=== PATIENT | female | born 1985 | race Caucasian/White ===

== ENCOUNTER 2017-04-02 23:56 | Inpatient (IN) | payer OTHER ==
[~2017-04-02] VITALS: Ht 165.1 cm; Wt 100.0 kg
[2017-04-03] VITALS (9 sets, daily range): BP systolic 105–124; BP diastolic 56–64; PULSE 72–105; RESP 16–22; TEMP 98; Ht 165.1 cm; Wt 100.0 kg
--- NOTE | 2017-04-03 00:11 | ERA ---
ER Documentation Chief Complaint Date/Time DATE: 04/03/17 TIME: 00:10 Chief Complaint SOB,Tx from [facility] HPI 31-year-old female transferred from [place] for asthma exacerbation. Given albuterol and steroids. Minimal improvement. Patient to be admitted to telemetry ROS All systems reviewed and are negative except as per history of present illness. Allergies Allergies: Coded Allergies: No Known Allergy (Unverified , 04/03/17) Physical Exam Vitals Vital Signs Date Time Temp Pulse Resp B/P Pulse Ox O2 Delivery O2 Flow Rate FiO2 04/02/17 23:58 98.6 121 18 118/60 94 Physical Exam Const: [] Head: Atraumatic Eyes: Normal Conjunctiva ENT: Normal External Ears, Nose and Mouth. Neck: Full range of motion..~ No meningismus. Resp: Scattered wheezes bilaterally Cardio: Regular rate and rhythm, no murmurs Abd: Soft, non tender, non distended. Normal bowel sounds Skin: No petechiae or rashes Back: No midline or flank tenderness Ext: No cyanosis, or edema Neur: Awake and alert Psych: Normal Mood and Affect Procedures/MDM Patient's respiratory symptoms have not responded to normal outpatient therapy and will require inpatient workup, monitoring, and treatment. Accepting Care Team: Current data and ongoing care discussed. Time: 12 AM Primary Provider: Kendrick Consulting: None Outstanding Data: none Departure Diagnosis: Primary Impression: Asthma Qualified Code: J45.901 - Asthma with acute exacerbation, unspecified asthma severity Additional Impression: Shortness of breath Condition: Serious PAULETTE CORREA Apr 03, 2017 00:11
[2017-04-03] MEDS ORDERED: NACL 0.9% 3 ML SYG IV SCH (01:00)
[2017-04-03] MEDS ORDERED: ACETAMINOPHEN 325 MG TAB PO PRN (01:00)
[2017-04-03] MEDS ORDERED: ALBUTEROL/IPRATROPIUM (NEB) 3 ML AMP HHN PRN (01:00)
[2017-04-03] MEDS ORDERED: morphine 2 MG INJ IV PRN (01:00)
[2017-04-03] MEDS ORDERED: DOCUSATE SODIUM 100 MG CAP PO PRN (01:00)
[2017-04-03] MEDS ORDERED: ONDANSETRON 4 MG INJ IV PRN (01:00)
[2017-04-03 06:04] LABS: ADD SCAN DIFF NO
[2017-04-03 06:08] LABS: BASOPHILS % 0.1 % (0.0-2.0); HEMATOCRIT 34.1 % (37.0-47.0); HEMOGLOBIN 11.3 g/dl (12.0-16.0); LYMPHOCYTES % 8.9 % (15.0-51.0); MEAN CORPUSCULAR HEMOGLOBIN 30.6 pg (29.0-33.0); MEAN CORPUSCULAR HGB CONC 33.1 g/dl (32.0-37.0); MEAN CORPUSCULAR VOLUME 92.4 fl (82.0-101.0); MEAN PLATELET VOLUME 9.5 fl (7.4-10.4); MONOCYTE # 0.5 10^3/ul (0.3-0.9); MONOCYTES % 4.6 % (0.0-11.0); NEUTROPHIL # 9.8 10^3/ul (1.6-7.5); NEUTROPHILS % 85.9 % (39.0-77.0); PLATELET COUNT 361 10^3/UL (140-415); RED BLOOD COUNT 3.69 10^6/ul (4.20-5.40); WHITE BLOOD COUNT 11.4 10^3/ul (4.8-10.8)
[2017-04-03 06:30] LABS: CALCIUM 8.8 mg/dl (8.4-10.2); CREATININE 0.51 mg/dl (0.44-1.00); POTASSIUM 4.6 mmol/L (3.5-5.1)
[2017-04-03] MEDS: METHYLPREDNISOLONE 125 MG INJ IV SCH ×4 (08:07→23:02)
--- NOTE | 2017-04-03 08:45 | HP ---
DATE OF ADMISSION: 04/03/2017 CHIEF COMPLAINT: Shortness of breath. HISTORY OF PRESENT ILLNESS: The patient is a 31-year-old female with a history of asthma as a child . She has no other significant medical history. She has no recent episodes of asthma. The patient states that she was in the ____, was very warm, and began to have shortness of breath and wheezing. She presented to an outside hospital where she was diagnosed with asthma and was transferred here for insurance purposes. The patient does not have any albuterol at home, and she does not say that her asthma is significant. The patient currently states she feels better. She has no other complai nts. PAST MEDICAL HISTORY: Asthma as a child, otherwise negative. The patient does have obesity. PAST SURGICAL HISTORY: Cholecystectomy. HOME MEDICATIONS: None reported. ALLERGIES: NO KNOWN DRUG ALLERGIES. FAMILY HISTORY: Denies. SOCIAL HISTORY: Denies any alcohol, tobacco, or drug abuse. REVIEW OF SYSTEMS: A 12-point review of systems negative except as stated in HPI. PHYSICAL EXAMINATION: VITAL SIGNS: Temperature is 98.4, pulse 93, respiratory rate is 24, BP is 102/57, saturation 97% on 2 L. GENERAL: No acute distress, alert and oriented. HEENT: Normocephalic, atraumatic. LUNGS: Mild wheezing appreciated bilaterally. CARDIOVASCULAR: Regular rate and rhythm. ABDOMEN: Nondistended, nontender, soft, obese. EXTREMITIES: No clubbing, cyanosis, or edema. LABORATORIES: White count is 11.4, hemoglobin is 11.3, platelets are 361. Chemistry within normal limits except for chloride slightly elevated at 111. DIAGNOSTICS: Chest x-ray at an outside hospital was reportedly normal. ASSESSMENT AND PLAN: 1. Asthma exacerbation. The patient has another child and has not had any episodes for many years now. The patient is still wheezing slightly at this time. We will treat the patient with Solu-Medr ol, Advair, and DuoNeb p.r.n. We will also get a pulmonology consultation. 2. Leukocytosis, likely reactive. 3. Mild anemia. The patient is normocytic. Will monitor. 4. Prophylaxis. Lovenox. Dictated By: JUSTIN PALMER MD BS/NTS Conf#: [id number] DID#: [id number]
[2017-04-03] MEDS: ENOXAPARIN 40 MG/0.4 ML SYG SC SCH (09:00)
[2017-04-03] MEDS ORDERED: predniSONE 20 MG TAB PO SCH (09:00)
[2017-04-03] MEDS: HYDROCODONE/APAP (5/325) TAB PO PRN ×2 (09:25→17:25)
[2017-04-03] MEDS: SALMETEROL/FLUTICASONE 250/50 INHA INH SCH ×2 (10:53→21:59)
--- NOTE | 2017-04-03 11:11 | CONS ---
Date/Time of Note Date/Time of Note DATE: 04/03/17 TIME: 11:07 Assessment/Plan Assessment/Plan Additional Assessment/Plan Assessment and recommendations; 1. Patient admitted for asthma exacerbation with acute sinusitis. Do new current Solu-Medrol dosing. Start oral Zithromax 500 mg daily. Add Claritin twice daily. Change albuterol to DuoNeb scheduled every 4 hours. Administered pneumococcal vaccine. Add Pepcid for GI prophylaxis. Obtain a chest x-ray Consultation Date/Type/Reason Admit Date/Time Apr 03, 2017 at 00:09 Date of Consultation: Apr 03, 2017 Type of Consultation: Pulmonary Reason for Consultation Pulmonary consultation requested for evaluation of asthma exacerbation. History of presenting any; patient is a pleasant 31-year-old lady who came into the emergency room with a few days history of increasing shortness of breath chest congestion and wheezing. According to the patient she has been having occasional chest tightness with exertion for the last several months with recent flareup over the last few days. Patient also complains of significant postnasal drip and sinus congestion and production of clear to slightly yellow sputum. Denies any chest pain fever chills. Past medical history; 1. History of asthma, and however outgrew it but according to what she is describing it appears that the patient has had a recurrence at least for the last several months. 2. History of cholecystectomy. Medications; reviewed. Allergies; none. Social history; patient never smoked. Family history; patient is single. No children. Her mother had asthma. Occupation she; patient going to start working in an [employer] line soon. Currently is a visual effects artist. Pets, patient has a dog at home. Patient does report symptoms around animals. Review of systems; denies any headache, gas, and sinus symptoms postnasal drip. Wheezing shortness of breath. Cough and sputum production. Denies any abdominal pain, nausea vomiting. Any weight gain. Denies any edema. Any GI or urinary symptoms. Any skin changes. General exam; young woman, awake alert currently in no distress. Social History Smoking Status: Never smoker Exam/Review of Systems Vital Signs Vitals Vital Signs Date Time Temp Pulse Resp B/P Pulse Ox O2 Delivery O2 Flow Rate FiO2 04/03/17 09:33 98.2 72 22 113/59 94 04/03/17 08:22 Nasal Cannula 2.0 Exam HEENT exam; supple neck, no JVD. No lymphadenopathy. Midline trachea. No thyromegaly. Patient has good dentition. Pupils are equal and reactive to light. There is no maxillary sinus tenderness. Chest examined; diffuse bilateral wheezing. S1-S2 audible, no murmurs. Regular rhythm. Abdomen examination; soft, nontender. No organomegaly. Bowel sounds audible. Extremity exam is; no peripheral edema. Pulses 1+ bilaterally. No clubbing. UNIVERSITY REGISTRAR examination; no focal deficit Results Result Diagram: 04/03/1720 04/03/17 0520 Results 24 hrs Laboratory Tests Test 04/03/17 05:20 White Blood Count 11.4 H Red Blood Count 3.69 L Hemoglobin 11.3 L Hematocrit 34.1 L Mean Corpuscular Volume 92.4 Mean Corpuscular Hemoglobin 30.6 Mean Corpuscular Hemoglobin Concent 33.1 Red Cell Distribution Width 13.0 Platelet Count 361 Mean Platelet Volume 9.5 Neutrophils % 85.9 H Lymphocytes % 8.9 L Monocytes % 4.6 Eosinophils % 0.0 Basophils % 0.1 Nucleated Red Blood Cells % 0.0 Neutrophils # 9.8 H Lymphocytes # 1.0 Monocytes # 0.5 Eosinophils # 0.0 Basophils # 0.0 Nucleated Red Blood Cells # 0.0 Sodium Level 144 Potassium Level 4.6 Chloride Level 111 H Carbon Dioxide Level 23 Anion Gap 15 Blood Urea Nitrogen 11 Creatinine 0.51 Glucose Level 101 Hemoglobin A1c 5.4 Calcium Level 8.8 Medications Medications Current Medications Ondansetron HCl (Zofran Inj) 4 mg Q6H PRN IV NAUSEA AND/OR VOMITING; Start at 01:00 Acetaminophen (Tylenol Tab) 650 mg Q6H PRN PO PAIN LEVEL 1-3 OR FEVER; Start at 01:00 Acetaminophen/ Hydrocodone Bitart ([place] (5/325)) 1 tab Q6H PRN PO MODERATE PAIN LEVEL 4-6 Last administered on 04/03/17t 09:25; Admin Dose 1 TAB; Start at 01:00 Morphine Sulfate (morphine) 2 mg Q4H PRN IV SEVERE PAIN LEVEL 7-10; Start 04/03 at 01:00 Docusate Sodium (Colace) 100 mg Q12H PRN PO CONSTIPATION; Start 04/03/17 at 01: 00 Enoxaparin Sodium (Lovenox) 40 mg DAILY SC ; Start 04/03/17 at 09:00 Salmeterol Xinafoate/ Fluticasone (Advair 250/50 Diskus) 1 inh BID INH Last administered on 04/03/17 10:53; Admin Dose 1 INH; Start 04/03/17 at 09:00 Methylprednisolone Sodium Succinate (Solu-Medrol) 60 mg Q6 IV Last administered on 04/03/17 08:07; Admin Dose 60 MG; Start 04/03/17 at 07:30; Stop 04/04/17 at 00:01 JEAN MARIE MAN Apr 03, 2017 11:11
[2017-04-03] MEDS ORDERED: PNEUMOCOCCAL VACCINE 0.5 ML INJ IM* ONE (11:30)
[2017-04-03] MEDS: FAMOTIDINE 20 MG TAB PO SCH (12:29)
[2017-04-03] MEDS: ALBUTEROL/IPRATROPIUM (NEB) 3 ML AMP HHN SCH ×3 (12:45→20:55)
[2017-04-03] MEDS ORDERED: LORATADINE/PSEUDOEPHED (SR) TAB PO SCH (13:00)
[2017-04-03] MEDS: AZITHROMYCIN 250 MG TAB PO SCH (13:26)
[2017-04-03] MEDS: LORATADINE/PSEUDOEPHED (SR) TAB PO SCH ×3 (13:38→22:52)
--- NOTE | 2017-04-03 16:43 | RADRPT ---
PROCEDURE: XR Chest AP portable CLINICAL INDICATION: Specimen TECHNIQUE: An AP portable radiograph of the chest was submitted. COMPARISON: None. FINDINGS: Support Hardware: None Cardiovascular: The cardiovascular silhouette appears unremarkable. Lung Chau: The lung chau appear clear with no nodule, alveolar infiltrate, or interstitial promi nence evident. Pleural Spaces: No pneumothorax or pleural effusion is identified. Osseous Structures: The osseous structures appear intact. Soft Tissues: The soft tissues appear generous. IMPRESSION: Unremarkable portable chest. Physician Zonia Date Time Electronically viewed and signed by Aayush Hart Physician on 04/03/2017 16:42 RH/
[2017-04-04] VITALS (8 sets, daily range): BP systolic 104–132; BP diastolic 57–62; PULSE 66–106; RESP 16–18
[2017-04-04] MEDS: ALBUTEROL/IPRATROPIUM (NEB) 3 ML AMP HHN SCH ×3 (01:32→08:05)
[2017-04-04 07:41] LABS: ADD SCAN DIFF NO
[2017-04-04 07:45] LABS: BASOPHILS % 0.1 % (0.0-2.0); HEMATOCRIT 37.1 % (37.0-47.0); HEMOGLOBIN 12.2 g/dl (12.0-16.0); LYMPHOCYTES # 1.1 10^3/ul (0.8-2.9); LYMPHOCYTES % 9.3 % (15.0-51.0); MEAN CORPUSCULAR HEMOGLOBIN 30.2 pg (29.0-33.0); MEAN CORPUSCULAR HGB CONC 32.9 g/dl (32.0-37.0); MEAN CORPUSCULAR VOLUME 91.8 fl (82.0-101.0); MEAN PLATELET VOLUME 9.6 fl (7.4-10.4); MONOCYTE # 0.5 10^3/ul (0.3-0.9); MONOCYTES % 4.1 % (0.0-11.0); NEUTROPHIL # 10.3 10^3/ul (1.6-7.5); NEUTROPHILS % 85.6 % (39.0-77.0); PLATELET COUNT 361 10^3/UL (140-415); RED BLOOD COUNT 4.04 10^6/ul (4.20-5.40); RED CELL DISTRIBUTION WIDTH 13.1 % (11.5-14.5)
[2017-04-04] MEDS: LORATADINE/PSEUDOEPHED (SR) TAB PO SCH (08:16)
[2017-04-04] MEDS: FAMOTIDINE 20 MG TAB PO SCH (08:16)
[2017-04-04] MEDS: SALMETEROL/FLUTICASONE 250/50 INHA INH SCH (08:16)
[2017-04-04] MEDS: AZITHROMYCIN 250 MG TAB PO SCH (08:16)
[2017-04-04 08:18] LABS: ALBUMIN/GLOBULIN RATIO 1.14; CALCIUM 8.9 mg/dl (8.4-10.2); CREATININE 0.49 mg/dl (0.44-1.00); POTASSIUM 4.2 mmol/L (3.5-5.1); TOTAL PROTEIN 7.5 g/dl (6.1-8.1)
[2017-04-04] MEDS: ENOXAPARIN 40 MG/0.4 ML SYG SC SCH (08:19)
--- NOTE | 2017-04-04 10:02 | PDOCDIS ---
Discharge Instructions DIAGNOSIS Discharge Diagnosis: 1. asthma exacerbation 2. acute bronchitis 3. obesity CONDITION Patient Condition: Stable HOME CARE INSTRUCTIONS: Special Diet: REGULAR FOLLOW UP/APPOINTMENTS Appointments 1. Follow up with your primary care provider in one week ANNITA VEGAS Apr 04, 2017 10:02
[2017-04-04] MEDS ORDERED: ADV10050 INHALATION (10:04)
[2017-04-04] MEDS ORDERED: AZIT500T2 PO (10:04)
[2017-04-04] MEDS ORDERED: ALBU18HF INHALATION (10:04)
[2017-04-04] MEDS ORDERED: PRED10TA PO (10:04)
[2017-04-04] MEDS ORDERED: GUAI-158 PO (10:58)
--- NOTE | 2017-04-04 12:56 | CONS ---
Date/Time of Note Date/Time of Note DATE: 04/04/17 TIME: 12:53 Assessment/Plan Assessment/Plan Additional Assessment/Plan Assessment recommend patient; next 1. Patient admitted with severe asthma exacerbation as well as sinusitis with significant clinical improvement. Continue current treatment. Patient will need to have a long-acting beta agonist as well as inhaled steroid treatment at least for the foreseeable future. She will also need antiallergy medications either Zyrtec or Claritin. Continue current Solu-Medrol dosing. Consultation Date/Type/Reason Admit Date/Time Apr 03, 2017 at 00:09 Initial Consult Date 04/03/17 Type of Consultation: Pulmonary 24 HR Interval Summary Free Text/Dictation Patient condition is significantly improved. According to her she still has wheezing but has significantly decreased. Denies any coughing fever chills. Sinus symptoms also have improved. Aries; young woman, awake alert currently in no distress. Exam/Review of Systems Vital Signs Vitals Vital Signs Date Time Temp Pulse Resp B/P Pulse Ox O2 Delivery O2 Flow Rate FiO2 04/04/17 12:24 106 04/04/17 11:24 98.0 18 104/57 96 04/04/17 05:39 Nasal Cannula 2.0 Intake and Output 04/03/17 04/03/17 04/04/17 15:00 23:00 07:00 Intake Total 1000 ml 600 ml Balance 1000 ml 600 ml Exam HEENT exam is; supple neck, no JVD. No lymphadenopathy. Midline trachea. No thyromegaly. Pharynx is clear. She has good dentition. Chest exam; minimal basilar wheezing bilaterally. S1-S2 audible, no murmurs. Regular rhythm. Abdomen examination; soft, nontender. No organomegaly. Bowel sounds audible. Extremity examination; no peripheral edema. JUICE TESTER examination; no focal deficit. Results Result Diagram: 04/04/17 0710 04/04/17 0710 Results 24 hrs Laboratory Tests Test 04/04/17 07:10 White Blood Count 12.0 H Red Blood Count 4.04 L Hemoglobin 12.2 Hematocrit 37.1 Mean Corpuscular Volume 91.8 Mean Corpuscular Hemoglobin 30.2 Mean Corpuscular Hemoglobin Concent 32.9 Red Cell Distribution Width 13.1 Platelet Count 361 Mean Platelet Volume 9.6 Neutrophils % 85.6 H Lymphocytes % 9.3 L Monocytes % 4.1 Eosinophils % 0.0 Basophils % 0.1 Nucleated Red Blood Cells % 0.0 Neutrophils # 10.3 H Lymphocytes # 1.1 Monocytes # 0.5 Eosinophils # 0.0 Basophils # 0.0 Nucleated Red Blood Cells # 0.0 Sodium Level 141 Potassium Level 4.2 Chloride Level 108 Carbon Dioxide Level 24 Anion Gap 13 Blood Urea Nitrogen 12 Creatinine 0.49 Glucose Level 140 Calcium Level 8.9 Total Bilirubin 0.0 L Direct Bilirubin 0.00 Indirect Bilirubin 0.0 Aspartate Amino Transf (AST/SGOT) 21 Alanine Aminotransferase (ALT/SGPT) 38 Alkaline Phosphatase 53 Total Protein 7.5 Albumin 4.0 Globulin 3.50 H Albumin/Globulin Ratio 1.14 Medications Medications Current Medications Ondansetron HCl (Zofran Inj) 4 mg Q6H PRN IV NAUSEA AND/OR VOMITING; Start at 01:00 Acetaminophen (Tylenol Tab) 650 mg Q6H PRN PO PAIN LEVEL 1-3 OR FEVER; Start at 01:00 Acetaminophen/ Hydrocodone Bitart ([place] (5/325)) 1 tab Q6H PRN PO MODERATE PAIN LEVEL 4-6 Last administered on 04/03/17 17:25; Admin Dose 1 TAB; Start at 01:00 Morphine Sulfate (morphine) 2 mg Q4H PRN IV SEVERE PAIN LEVEL 7-10; Start 04/03 at 01:00 Docusate Sodium (Colace) 100 mg Q12H PRN PO CONSTIPATION; Start 04/03/17 at 01: 00 Enoxaparin Sodium (Lovenox) 40 mg DAILY SC ; Start 04/03/17 at 09:00 Salmeterol Xinafoate/ Fluticasone (Advair 250/50 Diskus) 1 inh BID INH Last administered on 04/04/17 08:16; Admin Dose 1 INH; Start 04/03/17 at 09:00 Famotidine (Pepcid) 20 mg DAILY PO Last administered on 04/04/17 08:16; Admin Dose 20 MG; Start 04/03/17 at 11:30 Azithromycin (Zithromax) 500 mg DAILY PO Last administered on 04/04/17 08:16; Admin Dose 500 MG; Start 04/03/17 at 11:30 Loratadine/ Pseudoephedrine Sulfate (Claritin-D 12 Hr) 1 tab Q12 PO Last administered on 04/04/17t 08:16; Admin Dose 1 TAB; Start 04/03/17 at 13:30 JEAN MARIE MAN Apr 04, 2017 12:56
--- NOTE | 2017-04-04 16:10 | DS ---
Date/Time of Note Date/Time of Note DATE: 04/04/17 TIME: 16:05 Discharge Summary Admission/Discharge Info Admit Date/Time Apr 03, 2017 at 00:09 Discharge Date/Time Apr 04, 2017 at 13:33 Final Diagnosis 1. Asthma with exacerbation 2. Suspect acute bronchitis Patient Condition: Stable Consults 1. Dr. Ruiz ernesto [facility] Course This is a 31-year-old female with history of asthma who came to [facility] due to reports of increased shortness of breath and wheezing. Patient did have x-ray done that was negative for any acute intrapulmonary cardiopulmonary process. She was noted to be with active bronchospasm and was given the diagnosis of asthma exacerbation. She also was with some cough and also had suspect acute bronchitis. Patient was given antibiotic therapy with good response and she was also given Solu-Medrol. She was seen by chief operating engineer and placed on appropriate breathing treatments. During her stay she did improve. She was instructed to follow up with her primary care provider in a week. On the day of her discharge, patient was in stable condition Discharge process time: 40 minutes Discussed plan of care with Dr. Fraz[facility] Active Scripts Guaifenesin/Dextromethorphan* (Guaifenesin* DM) 1 Each Tablet, 1 TAB PO Q12, # 30 TAB.SA Prov:ANNITA VEGAS 04/04/17 Salmeterol Xinaf-Fluticasone* (Advair*) 100/50 Diskus Inhaler, 1 INH INHALATION BID, #1 INHALER Prov:ANNITA VEGAS 04/04/17 Azithromycin* (Zithromax* Tri-Micheal) 500 Mg Tablet, 500 MG PO DAILY for 3 Days, TAB Prov:REGANNITA LAZO 04/04/17 Prednisone (Prednisone) 10 Mg Tab, 10 MG PO DAILY, #14 TAB 1. take 40 mg by mouth daily for 2 days 2. then 20 mg by mouth daily for 2 days 3. then 10 mg by mouth daily for 2 days Prov:ANNITA VEGAS 04/04/17 Albuterol Sulfate* (Ventolin HFA*) 18 Gm Hfa.aer.ad, 2 PUFF INHALATION Q4H, #1 INHALER Prov:ANNITA VEGAS 04/04/17 Follow-up Plan CONDITION Patient Condition: Stable HOME CARE INSTRUCTIONS: Special Diet: REGULAR FOLLOW UP/APPOINTMENTS Appointments 1. Follow up with your primary care provider in one week Primary Care Provider Reji Marks Pending Labs Laboratory Tests Test 04/04/17 07:10 White Blood Count 12.010^3/ul (4.8-10.8) Red Blood Count 4.0410^6/ul (4.20-5.40) Hemoglobin 12.2g/dl (12.0-16.0) Hematocrit 37.1% (37.0-47.0) Mean Corpuscular Volume 91.8fl (82.0-101.0) Mean Corpuscular Hemoglobin 30.2pg (29.0-33.0) Mean Corpuscular Hemoglobin Concent 32.9g/dl (32.0-37.0) Red Cell Distribution Width 13.1% (11.5-14.5) Platelet Count 11844^3/UL (140-415) Mean Platelet Volume 9.6fl (7.4-10.4) Neutrophils % 85.6% (39.0-77.0) Lymphocytes % 9.3% (15.0-51.0) Monocytes % 4.1% (0.0-11.0) Eosinophils % 0.0% (0.0-7.0) Basophils % 0.1% (0.0-2.0) Nucleated Red Blood Cells % 0.0/100WBC (0.0-0.0) Neutrophils # 10.310^3/ul (1.6-7.5) Lymphocytes # 1.110^3/ul (0.8-2.9) Monocytes # 0.510^3/ul (0.3-0.9) Eosinophils # 0.010^3/ul (0.0-0.5) Basophils # 0.010^3/ul (0.0-0.1) Nucleated Red Blood Cells # 0.010^3/ul (0.0-0.0) Sodium Level 141mmol/L (135-144) Potassium Level 4.2mmol/L (3.5-5.1) Chloride Level 108mmol/L (97-110) Carbon Dioxide Level 24mmol/L (21-31) Anion Gap 13 (8-16) Blood Urea Nitrogen 12mg/dl (7-20) Creatinine 0.49mg/dl (0.44-1.00) Glucose Level 140mg/dl (70-220) Calcium Level 8.9mg/dl (8.4-10.2) Total Bilirubin 0.0mg/dl (0.2-1.3) Direct Bilirubin 0.00mg/dl (0.00-0.20) Indirect Bilirubin 0.0mg/dl (0-1.1) Aspartate Amino Transf (AST/SGOT) 21IU/L (15-46) Alanine Aminotransferase (ALT/SGPT) 38IU/L (13-69) Alkaline Phosphatase 53IU/L (42-121) Total Protein 7.5g/dl (6.1-8.1) Albumin 4.0g/dl (3.3-4.9) Globulin 3.50g/dl (1.3-3.2) Albumin/Globulin Ratio 1.14 ANNITA VEGAS Apr 04, 2017 16:10
== END 2017-04-04 13:33 | disposition home or self-care (01) | DRG 203 ==
LOC: E/R 23:56 → MS4 04-03 00:09
PROVIDERS: ADMIT Internal Medicine; ATTEND Internal Medicine
DX: J45.901 Unspecified asthma with (acute) exacerbation (principal); E66.9 Obesity, unspecified; J20.9 Acute bronchitis, unspecified; J01.90 Acute sinusitis, unspecified; D64.9 Anemia, unspecified; Z90.49 Acquired absence of other specified parts of digestive tract; Z68.36 Body mass index [BMI] 36.0-36.9, adult
CPT/HCPCS: 71010; 80048; 80053; 83036; 85025; 90732; 94640; 94664; J1650; J2930